=== PATIENT | female | born 1980 | race Caucasian/White ===

== ENCOUNTER → 2016-10-25 | Outpatient (CLI) | payer MEDICAID ==
--- NOTE | 2016-10-25 14:20 | CR ---
EXAMINATION: Left wrist HISTORY: Pain COMPARISON: None TECHNIQUE: 3 views FINDINGS/IMPRESSION: No acute osseous abnormality, dislocation, or fracture. Bone mineralization and joint spaces appear normal. The radiocarpal alignment is normal.
== END ==
LOC: MW.CHRC 10:18
PROVIDERS: ATTEND Family Medicine
DX: M25.532 Pain in left wrist (principal)
CPT/HCPCS: 73110-26-LT; 73110-LT